=== PATIENT | male | born 1970 | race Caucasian/White ===

== ENCOUNTER 2017-07-24 07:42 | Emergency (ER) | payer BC ==
[~2017-07-24] VITALS: Ht 182.9 cm; Wt 90.0 kg
[2017-07-24 07:45] VITALS: BP 131/90; PULSE 86; RESP 17; TEMP 97.5; O2SAT 96
[2017-07-24] MEDS ORDERED: XARE10TA PO (08:14)
[2017-07-24] MEDS ORDERED: LISI10TA3 PO (08:14)
--- NOTE | 2017-07-24 08:34 | PD ---
HPI Chief Complaint: Abnormal Results Time Seen by Provider: 08:03 Travel History International Travel<30 days: No Contact w/Intl Traveler<30days: No Traveled to known affect area: No History of Present Illness HPI This is a 47-year-old male with a history of polycythemia, presents today stating his doctor called him and told him his sodium was abnormally high. The patient states that he gets frequent blood work last blood work was on Friday. He states he got a call yesterday that he needed to be seen and evaluated because his sodium was high. Patient has no symptoms. He is currently on Xarelto secondary to having blood clots. He states he's frequently phlebotomized and was last phlebotomized 2 months ago. He has no complaints at this time I examination. 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 [facility] Past Medical History Hypertension: Yes Medical other: Yes (Polycythemia) Past Surgical History Surgical History: No Previous Surgery Social History Alcohol Use: Yes (DAILY) Tobacco Use: Yes Substance Use: No Allergies-Medications (Allergen,Severity, Reaction): Coded Allergies: No Known Allergies (Unverified , 07/24/17) Reported Meds & Prescriptions Reported Meds & Active Scripts Active Reported Lisinopril 10 Mg Tab 10 Mg PO DAILY Xarelto (Rivaroxaban) 10 Mg Tab 10 Mg PO DAILY Review of Systems Except as stated in HPI: all other systems reviewed are Neg General / Constitutional: No: Fever, Chills Eyes: No: Blurred Vision, Photophobia HENT: No: Headaches, Neck Pain Cardiovascular: No: Chest Pain or Discomfort, Palpitations Respiratory: No: Cough, Shortness of Breath Gastrointestinal: No: Nausea, Vomiting Genitourinary: No: Dysuria, Hematuria Musculoskeletal: Positive: Other (issue of DVT in the left lower extremity), No : Weakness, Pain Neurologic: No: Weakness, Dizziness, Headache, Change in Mentation Physical Exam Narrative GENERAL: Well-developed well-nourished male in no acute respiratory distress. SKIN: Focused skin assessment warm/dry. HEAD: Atraumatic. Normocephalic. EYES: No scleral icterus. No injection or drainage. ENT: No nasal bleeding or discharge. Mucous membranes pink and moist. NECK: Trachea midline. Supple. CARDIOVASCULAR: Regular rate and rhythm. No murmur appreciated. RESPIRATORY: No accessory muscle use. Clear to auscultation. Breath sounds equal bilaterally. GASTROINTESTINAL: Abdomen soft, non-tender, nondistended. Hepatic and splenic margins not palpable. MUSCULOSKELETAL: No obvious deformities. No clubbing. No cyanosis. No edema. NEUROLOGICAL: Awake and alert. No obvious cranial nerve deficits. Motor grossly within normal limits. Normal speech. PSYCHIATRIC: Appropriate mood and affect; insight and judgment normal. Data Data Last Documented VS Vital Signs Date Time Temp Pulse Resp B/P (MAP) Pulse Ox O2 Delivery O2 Flow Rate FiO2 07/24/17 07:45 97.5 86 17 131/90 (104) 96 Room Air Orders Orders Complete Blood Count With Diff (07/24/17 08:16) Comprehensive Metabolic Panel (07/24/17 08:16) Sodium Chlor 0.9% 1000 Ml Inj (Ns 1000 M (07/24/17 10:30) Labs Laboratory Tests Test 07/24/17 08:20 White Blood Count 4.2 TH/MM3 Red Blood Count 5.41 MIL/MM3 Hemoglobin 17.4 GM/DL Hematocrit 51.2 % Mean Corpuscular Volume 94.6 FL Mean Corpuscular Hemoglobin 32.1 PG Mean Corpuscular Hemoglobin Concent 33.9 % Red Cell Distribution Width 16.0 % Platelet Count 186 TH/MM3 Mean Platelet Volume 7.9 FL Neutrophils (%) (Auto) 52.7 % Lymphocytes (%) (Auto) 28.1 % Monocytes (%) (Auto) 13.2 % Eosinophils (%) (Auto) 5.2 % Basophils (%) (Auto) 0.8 % Neutrophils # (Auto) 2.2 TH/MM3 Lymphocytes # (Auto) 1.2 TH/MM3 Monocytes # (Auto) 0.5 TH/MM3 Eosinophils # (Auto) 0.2 TH/MM3 Basophils # (Auto) 0.0 TH/MM3 CBC Comment DIFF FINAL Differential Comment Blood Urea Nitrogen 14 MG/DL Creatinine 1.48 MG/DL Random Glucose 97 MG/DL Total Protein 7.4 GM/DL Albumin 3.3 GM/DL Calcium Level 8.3 MG/DL Alkaline Phosphatase 87 U/L Aspartate Amino Transf (AST/SGOT) 83 U/L Alanine Aminotransferase (ALT/SGPT) 61 U/L Total Bilirubin 0.4 MG/DL Sodium Level 136 MEQ/L Potassium Level 4.0 MEQ/L Chloride Level 103 MEQ/L Carbon Dioxide Level 22.7 MEQ/L Anion Gap 10 MEQ/L Estimat Glomerular Filtration Rate 51 ML/MIN MDM Medical Decision Making Medical Screen Exam Complete: Yes Emergency Medical Condition: Yes Differential Diagnosis Hypernatremia versus lab error versus other metabolic derangement versus hemoconcentration Narrative Course 47-year-old male with a history of polycythemia, previous DVTs, presents today stating he was called by his primary care doctor for an elevated sodium. I spoke with the primary care physician and he reports his sodium was 158 on Friday for blood work. Sodium today is 136 which is within normal limits. He does have mild renal insufficiency with a creatinine in the 1.4 range. Primary care physician states that his baseline range. His hemoglobin was 17.4. He is in no distress and has no symptoms. He'll be discharged and told to follow up with his primary care physician in [place]. He is instructed to make sure he hydrates himself well while out in the heat. Diagnosis Primary Impression: reported abnormal sodium Additional Impressions: History of polycythemia Renal insufficiency Additional Instructions: Your sodium was normal with a level of 136 today. Call your primary care physician and vice president for philanthropy for follow up. Return if shortness of breath, dizziness, weakness, or any other reason that concerned her. Drink plenty of fluids. Disposition: 01 DISCHARGE HOME Condition: Stable Adrian Azevedo MD Jul 24, 2017 08:34
[2017-07-24 09:16] LABS: AUTOMATED NEUTROPHIL # 2.2 TH/MM3 (1.8-7.7); BASOPHIL % 0.8 % (0.0-2.0); EOSINOPHIL # 0.2 TH/MM3 (0-0.4); EOSINOPHIL % 5.2 % (0.0-4.0); HEMATOCRIT 51.2 % (39.0-51.0); HEMO FLAGS DIFF FINAL; LYMPH % 28.1 % (9.0-44.0); LYMPHOCYTE # 1.2 TH/MM3 (1.0-4.8); MEAN CELL VOLUME 94.6 FL (80.0-100.0); MEAN CORPUSCULAR HEMOGLOBIN 32.1 PG (27.0-34.0); MEAN CORPUSCULAR HGB CONC 33.9 % (32.0-36.0); MONO % 13.2 % (0.0-8.0); NEUT % 52.7 % (16.0-70.0); PLATELET COUNT 186 TH/MM3 (150-450); RED BLOOD COUNT 5.41 MIL/MM3 (4.50-5.90); WHITE BLOOD COUNT 4.2 TH/MM3 (4.0-11.0)
[2017-07-24 09:28] LABS: ANION GAP 10 MEQ/L (5-15); AST (GOT) 83 U/L (15-37); BICARBONATE 22.7 MEQ/L (21.0-32.0); BLOOD UREA NITROGEN 14 MG/DL (7-18); CHLORIDE 103 MEQ/L (98-107); GLOMERULAR FILTRATION RATE 51 ML/MIN (>89); SODIUM (NA) 136 MEQ/L (136-145)
[2017-07-24 09:29] LABS: ALKALINE PHOSPHATASE 87 U/L (45-117); ALT (GPT) 61 U/L (12-78); TOTAL BILIRUBIN ADULT 0.4 MG/DL (0.2-1.0)
[2017-07-24] MEDS ORDERED: SODIUM CHLOR 0.9% 1000 ML INJ 1,000 ML IV SCH (10:30)
--- NOTE | 2017-07-24 14:59 | EKG ---
Date Performed: 07/24/2017 Time Performed: 08:14:34 PTAGE: 47 years EKG: Sinus rhythm NORMAL ECG NO PREVIOUS TRACING DOCTOR: Michael Mcclain Interpretating Date/Time 07/24/2017 14:57:32
== END 2017-07-24 12:02 | disposition home or self-care (01) ==
LOC: NEPE 07:42
DX: D75.1 Secondary polycythemia (principal); N28.9 Disorder of kidney and ureter, unspecified; I10 Essential (primary) hypertension; F17.200 Nicotine dependence, unspecified, uncomplicated
CPT/HCPCS: 80053; 85025; 93005; 96360; 96361; 99284; J7030